=== PATIENT | male | born 1960 | race Caucasian/White ===

== ENCOUNTER 2023-11-14 10:16 | Day surgery (SDC) | payer OTHER ==
[~2023-11-14] VITALS: Ht 170.2 cm; Wt 102.1 kg
[2023-11-14] MEDS ORDERED: fentaNYL citrate 0.05 MG/ML VIAL ONE (12:19)
[2023-11-14] MEDS: fentaNYL citrate 0.05 MG/ML VIAL IVP ONE (12:57)
[2023-11-14] MEDS: LIDOCAINE 2% 100 MG/5 ML UJET TP ONE (13:10)
== END 2023-11-14 14:15 | disposition home or self-care (01) ==
LOC: MDS 10:16 → MMU 10:17 → MDS 14:15
PROVIDERS: ATTEND Internal Medicine Gastroenterology
DX: R19.5 Other fecal abnormalities (principal); K57.30 Diverticulosis of large intestine without perforation or abscess without bleeding; K63.5 Polyp of colon; E11.9 Type 2 diabetes mellitus without complications; M19.90 Unspecified osteoarthritis, unspecified site; Z86.010 Personal history of colon polyps; Z79.899 Other long term (current) drug therapy; Z98.890 Other specified postprocedural states
CPT/HCPCS: 45385; 82948; J3010